=== PATIENT | male | born 1945 | race Caucasian/White ===

== ENCOUNTER 2021-11-03 20:33 | Emergency (ER) | payer MEDICARE, OTHER ==
[2021-11-03] MEDS ORDERED: Sodium Chloride 0.9% 10 ML Syringe FLUSH PRN (20:50)
[2021-11-03] MEDS ORDERED: Sodium Chloride 0.9% 1,000 ML IV STA (21:09)
[2021-11-03] MEDS ORDERED: Magnesium Citrate Solution 296 ML Bottle PO ONE (22:08)
== END 2021-11-03 22:30 | disposition home or self-care (01) ==
LOC: JD.ED 20:33
DX: K59.00 Constipation, unspecified (principal)
CPT/HCPCS: 36415; 71046; 74019; 80053; 83735; 85025; 86140; 96360; 99284; A9270; J3490; J7030; 99283